=== PATIENT | female | born 1995 | race Caucasian/White ===

== ENCOUNTER → 2016-05-26 | Outpatient (CLI) | payer SELFPAY ==
--- NOTE | 2016-05-26 17:18 | REP ---
Obstetric sonography: History: Supervision of at 20 weeks for anatomy. Findings: Scanning through the gravid uterus demonstrates a viable single intrauterine gestation in a breech lie. motion is observed and heart rate is recorded at 150 beats per minute. A posterior grade 0 placenta is seen without evidence of previa or abruption. Amniotic fluid is subjectively normal. Closed cervical length is 3.2 cm measured transabdominally. No extrauterine abnormalities observed. No anomaly is seen. spine is less than optimally seen due to position. The following additional anatomic structures are identified and felt to be sonographically unremarkable: cranium, choroid plexus, cavum, cerebellum and posterior fossa, face and profile, lungs, four-chamber heart with left and right ventricular outflow tract views, diaphragm, left-sided stomach, abdominal wall cord insertion, three-vessel umbilical cord, kidneys and bladder, upper and lower extremities. Biometry chart: BPD 4.5 cm = 19 weeks 5 days HC 18.1 cm = 20 weeks 3 days AC 3.0 cm = 20 weeks 3 days FL 3.0 cm = 19 weeks 2 days HL 3.0 cm = 20 weeks 0 days HC/AC ratio normal 1.18. Cephalic index normal 0.67. Estimated weight 323 grams 0 pounds 11 ounces, 45th percentile for 20 weeks 0 days. Impression: Viable single intrauterine gestation at 20 weeks 0 days by today's composite sonographic criteria. JADON by today's sonography October 13, 2016. spine is less than optimally seen due to position. anatomic survey is otherwise complete. Signed by Jd Chaves MD 05/27/2016 09:54 A
== END | disposition home or self-care (01) ==
LOC: M RAD 10:47
DX: Z36 Encounter for antenatal screening of mother (principal); Z3A.20 20 weeks gestation of pregnancy; O32.1XX0 Maternal care for breech presentation, not applicable or unspecified

== ENCOUNTER 2017-12-24 19:59 | Emergency (ER) | payer MEDICAID, SELFPAY ==
[2017-12-24] MEDS: CLINDAMYCIN 150 MG CAP PO (20:44)
[2017-12-24] MEDS: NORCO 5/325MG TABLET (BULK FOR ED) PO (20:44)
== END 2017-12-24 21:04 | disposition home or self-care (01) ==
LOC: M ED 19:59
DX: K04.7 Periapical abscess without sinus (principal); K08.89 Other specified disorders of teeth and supporting structures; Z72.0 Tobacco use; Z88.0 Allergy status to penicillin; Z88.1 Allergy status to other antibiotic agents
CPT/HCPCS: 99282

== ENCOUNTER 2018-02-10 20:14 | Emergency (ER) | payer MEDICAID ==
[2018-02-10] MEDS: TETRACAINE 0.5% OPHTH SOLN 4ML OS (21:40)
[2018-02-10] MEDS: FLUORESCEIN OPHTH 1 MG STRIP OS (21:40)
[2018-02-10] MEDS ORDERED: ERYTHROMYCIN OPHTH OINT OD (21:45)
[2018-02-10] MEDS: IBUPROFEN 800 MG TAB PO (21:57)
[2018-02-10] MEDS: ADACEL/BOOSTRIX VACCINE (DIPHTH/PERTUSS/ACELL/TETANUS)0.5ML SYR (90715) IM (21:57)
[2018-02-10] MEDS: CIPROFLOXACIN 0.3% OPHTH SOLN 2.5ML OD (22:03)
== END 2018-02-10 22:09 | disposition home or self-care (01) ==
LOC: M ED 20:14
DX: S05.01XA Injury of conjunctiva and corneal abrasion without foreign body, right eye, initial encounter (principal); W20.8XXA Other cause of strike by thrown, projected or falling object, initial encounter; Y92.89 Other specified places as the place of occurrence of the external cause; F41.9 Anxiety disorder, unspecified; F32.9 Major depressive disorder, single episode, unspecified; F17.210 Nicotine dependence, cigarettes, uncomplicated; Z88.0 Allergy status to penicillin; Z88.1 Allergy status to other antibiotic agents
CPT/HCPCS: 90715

== ENCOUNTER 2018-08-12 23:41 | Emergency (ER) | payer OTHER ==
[~2018-08-12] VITALS: Ht 165.1 cm; Wt 59.5 kg
[~2018-08-12 23:41] MED LIST: CIPR0.3S OD; CLEO300C2 PO; ERYT1OIN26 OD; HYDR-3715 PO; IBUP1TAB7 PO
[2018-08-13] MEDS ORDERED: ALPRAZolam 0.25 MG TAB PO ONE (02:30)
[2018-08-13 02:31] VITALS: BP 120/62
== END 2018-08-13 02:44 | disposition home or self-care (01) ==
LOC: M ED 23:41
DX: F32.9 Major depressive disorder, single episode, unspecified (principal); F43.10 Post-traumatic stress disorder, unspecified; Z86.59 Personal history of other mental and behavioral disorders; Z62.819 Personal history of unspecified abuse in childhood; Z91.5 Personal history of self-harm

== ENCOUNTER 2018-08-15 01:14 | Emergency (ER) | payer OTHER ==
[~2018-08-15] VITALS: Ht 165.1 cm; Wt 60.9 kg
[2018-08-15 03:21] LABS: HEMATOCRIT 39.9 % (36.0-47.0); HEMOGLOBIN 13.1 g/dl (12.0-15.5); MEAN CORPUSCULAR HEMOGLOBIN 30.6 pg (27.0-33.0); MEAN CORPUSCULAR HGB CONC 32.8 g/dl (32.0-36.5); MEAN CORPUSCULAR VOLUME 93.2 fl (80.0-96.0); PLATELET COUNT, AUTOMATED 257 10^3/uL (150-450); RED BLOOD COUNT 4.28 10^6/uL (4.00-5.40); WHITE BLOOD COUNT 9.2 10^3/uL (4.0-10.0)
[2018-08-15 03:44] LABS: HCG, SERUM QUALITATIVE NEGATIVE (NEGATIVE)
[2018-08-15 03:55] LABS: ACETAMINOPHEN LEVEL < 2.0 UG/ML (10.0-30.0); ALBUMIN 4.1 GM/DL (3.2-5.2); ALT/SGPT 21 U/L (12-78); BILIRUBIN,DIRECT < 0.1 MG/DL (0.0-0.2); BILIRUBIN,TOTAL 0.2 MG/DL (0.2-1.0); BLOOD UREA NITROGEN 14 MG/DL (7-18); CALCIUM LEVEL 8.5 MG/DL (8.5-10.1); CARBON DIOXIDE LEVEL 25 MEQ/L (21-32); CHLORIDE LEVEL 112 MEQ/L (98-107); CREATININE FOR GFR 1.19 MG/DL (0.55-1.30); ETHYL ALCOHOL (ETHANOL) < 0.003 % (0.000-0.010); GLOMERULAR FILTRATION RATE 59.3 (>60); GLUCOSE, FASTING 94 MG/DL (70-100); POTASSIUM SERUM 4.2 MEQ/L (3.5-5.1); SALICYLATE LEVEL 2.4 MG/DL (5.0-30.0); SODIUM LEVEL 144 MEQ/L (136-145); THYROID STIMULATING HORMONE 0.779 uIU/ML (0.358-3.740); TOTAL PROTEIN 7.1 GM/DL (6.4-8.2)
[2018-08-15 04:38] LABS: AMPHETAMINES LEVEL URINE NEGATIVE (NEGATIVE); BARBITURATES URINE NEGATIVE (NEGATIVE); BENZODIAZEPINES URINE NEGATIVE (NEGATIVE); CANNABINOIDS URINE POSITIVE (NEGATIVE); COCAINE METABOLITE URINE NEGATIVE (NEGATIVE); METHADONE URINE NEGATIVE (NEGATIVE); OPIATES URINE NEGATIVE (NEGATIVE); PHENCYCLIDINE URINE NEGATIVE (NEGATIVE)
[2018-08-15 06:25] VITALS: BP 125/62
--- NOTE | 2018-08-15 23:12 | ECGEPIP ---
Stationary ECG Study [facility] - ED Test Date: 2018-08-15 Pat Name: LOREE SHIRLEY Department: Room: - Gender: [place]: : 1995 Requested By: Clint Zuniga Order Number: [id number] Reading MD: Clint Bunch Measurements Intervals Mere[place] Rate: 76 P: -43 MD: 156 QRS: 84 QRSD: 93 T: 44 QT: 370 QTc: 418 Interpretive Statements SINUS RHYTHM SIMILAR TO 06/30/15 Electronically Signed On 08-15-2018 23:12:39 EDT by Clint Bunch
== END 2018-08-15 06:30 | disposition home or self-care (01) ==
LOC: M ED 01:14
DX: F41.9 Anxiety disorder, unspecified (principal); F33.9 Major depressive disorder, recurrent, unspecified; F12.10 Cannabis abuse, uncomplicated; F43.10 Post-traumatic stress disorder, unspecified; Z91.5 Personal history of self-harm; Z62.810 Personal history of physical and sexual abuse in childhood; F19.10 Other psychoactive substance abuse, uncomplicated; F17.210 Nicotine dependence, cigarettes, uncomplicated
CPT/HCPCS: 36415; 80048; 80076; 80307; 84443; 84703; 85027; 93005; 99284; G0480

== ENCOUNTER 2018-10-22 17:26 | Emergency (ER) | payer OTHER ==
[~2018-10-22] VITALS: Ht 165.1 cm; Wt 56.8 kg
[2018-10-22] MEDS ORDERED: PERCOCET 5MG/325MG TAB PO ONE (18:00)
--- NOTE | 2018-10-22 18:13 | REP ---
Clinical: Trauma. Fall. Technique: AP, lateral, bilateral oblique views of the left wrist. Findings: There is a nondisplaced minimally angulated fracture of the distal radial metaphysis which appears to extend to the articular surface. Overlying soft tissue swelling noted. Carpal bones and ulna appear intact. Impression: Fracture of the distal radial metaphysis appears to extend to the articular surface. Electronically Signed by Yaya Moran MD 10/22/2018 06:05 P
[2018-10-22] MEDS ORDERED: NORC1TAB7 PO (18:58)
[2018-10-22] MEDS ORDERED: IBUP-1022 PO (18:58)
[2018-10-22] MEDS ORDERED: NORCO 5/325MG TABLET (BULK FOR ED) PO ONE (19:00)
[2018-10-22 19:12] VITALS: BP 127/82
== END 2018-10-22 19:23 | disposition home or self-care (01) ==
LOC: M ED 17:26
DX: S52.502A Unspecified fracture of the lower end of left radius, initial encounter for closed fracture (principal); V16.4XXA Pedal cycle driver injured in collision with other nonmotor vehicle in traffic accident, initial encounter; Y92.410 Unspecified street and highway as the place of occurrence of the external cause; Z88.0 Allergy status to penicillin; Z88.1 Allergy status to other antibiotic agents; Z88.8 Allergy status to other drugs, medicaments and biological substances; F17.210 Nicotine dependence, cigarettes, uncomplicated

== ENCOUNTER → 2019-04-09 | Outpatient (CLI) | payer OTHER ==
[~2019-04-09] MED LIST changes: +IBUP-1022 PO; +NORC1TAB7 PO
== END ==
LOC: M LAB 15:14
PROVIDERS: ATTEND Obstetrics & Gynecology
DX: Z34.90 Encounter for supervision of normal pregnancy, unspecified, unspecified trimester (principal)

== ENCOUNTER → 2019-10-08 | Outpatient (CLI) | payer OTHER ==
[~2019-10-08] MED LIST changes: -ERYT1OIN26 OD; +ERYT5OIN25 OD
== END ==
LOC: M LAB 13:00
DX: N91.0 Primary amenorrhea (principal)

== ENCOUNTER → 2019-10-16 | Outpatient (CLI) | payer OTHER ==
[~2019-10-16] MED LIST changes: +IBUP-1114 PO; +MAPA500C PO; +REGL10TA6 PO
--- NOTE | 2019-10-17 03:22 | REP ---
REASON: Supervision of normal . Transvesical imaging was obtained. Within the uterus, there is an anechoic structure with increased echoes surrounding it, consistent with a decidual reaction. Within the gestational sac, there is echogenic material, consistent with a pole, the mean crown-rump length measurement of which is consistent with a 6-week 5-day gestational age. Based on that, the estimated date of delivery is 06/05/2020. Doppler interrogation of the heart shows a heart rate of 140 beats per minute. The maternal cervix measures 3.1 cm in length and is closed. Evaluation of the maternal adnexal spaces showed no gross abnormalities. IMPRESSION: Early OB ultrasound, as described above.
== END ==
LOC: M WHC 14:49
DX: Z34.90 Encounter for supervision of normal pregnancy, unspecified, unspecified trimester (principal); Z36.87 Encounter for antenatal screening for uncertain dates; Z3A.01 Less than 8 weeks gestation of pregnancy

== ENCOUNTER 2019-10-21 13:25 | Emergency (ER) | payer OTHER ==
[~2019-10-21] VITALS: Ht 165.1 cm; Wt 60.0 kg
[~2019-10-21 13:25] MED LIST changes: -IBUP-1114 PO; -MAPA500C PO; -REGL10TA6 PO
[2019-10-21] MEDS ORDERED: NS 1,000 ML IV ONE (13:45)
[2019-10-21] MEDS ORDERED: METOCLOPRAMIDE 10 MG TAB PO ONE (13:45)
[2019-10-21] MEDS ORDERED: METOCLOPRAMIDE INJ 10MG/2ML VIAL (J2765 PER 1) IV ONE (14:15)
[2019-10-21 14:17] LABS: BASO % 0.3 % (0.0-1.0); EOS % 0.3 % (0.0-3.0); HEMATOCRIT 35.8 % (36.0-47.0); HEMOGLOBIN 12.3 g/dl (12.0-15.5); LYMPH # 1.4 10^3/uL (1.5-5.0); MEAN CORPUSCULAR HEMOGLOBIN 30.6 pg (27.0-33.0); MEAN CORPUSCULAR HGB CONC 34.4 g/dl (32.0-36.5); MEAN CORPUSCULAR VOLUME 89.1 fl (80.0-96.0); MONO # 0.5 10^3/uL (0.0-0.8); MONO % 6.3 % (0.0-5.0); NEUTROPHILS # 5.3 10^3/uL (1.5-8.5); PLATELET COUNT, AUTOMATED 282 10^3/uL (150-450); RED BLOOD COUNT 4.02 10^6/uL (4.00-5.40); WHITE BLOOD COUNT 7.2 10^3/uL (4.0-10.0)
[2019-10-21] MEDS ORDERED: REGL10TA6 PO (15:38)
[2019-10-21 15:56] VITALS: BP 110/73
== END 2019-10-21 16:03 | disposition home or self-care (01) ==
LOC: M ED 13:25
DX: O21.0 Mild hyperemesis gravidarum (principal); Z3A.01 Less than 8 weeks gestation of pregnancy; O99.341 Other mental disorders complicating pregnancy, first trimester; F33.9 Major depressive disorder, recurrent, unspecified; F41.9 Anxiety disorder, unspecified; F43.10 Post-traumatic stress disorder, unspecified; F94.1 Reactive attachment disorder of childhood; Z88.1 Allergy status to other antibiotic agents; Z88.8 Allergy status to other drugs, medicaments and biological substances; F17.210 Nicotine dependence, cigarettes, uncomplicated; O99.331 Smoking (tobacco) complicating pregnancy, first trimester
CPT/HCPCS: 80047; 84702; 85025; 96361; 96374; 99284; J2765

== ENCOUNTER → 2019-10-28 | Outpatient (CLI) | payer OTHER ==
[~2019-10-28] MED LIST changes: +IBUP-1114 PO; +MAPA500C PO; +REGL10TA6 PO
== END ==
LOC: M LABSMTC 10:58
PROVIDERS: ATTEND Anesthesiology
DX: Z03.818 Encounter for observation for suspected exposure to other biological agents ruled out (principal)
CPT/HCPCS: C9803; U0003

== ENCOUNTER 2019-10-31 06:13 | Day surgery (SDC) | payer OTHER ==
[~2019-10-31] VITALS: Ht 165.1 cm; Wt 59.9 kg
[~2019-10-31 06:13] MED LIST changes: -IBUP-1114 PO; -MAPA500C PO
[2019-10-31] MEDS ORDERED: MAPA500C PO (06:55)
[2019-10-31] MEDS ORDERED: IBUP-1114 PO (06:57)
[2019-10-31] MEDS ORDERED: LR 1,000 ML IV ONE (07:00)
[2019-10-31] MEDS ORDERED: ceFAZolin SOD 2 GM in IV 1 EA IV ONE (07:00)
[2019-10-31] MEDS ORDERED: CHLORHEXIDINE GLUCONATE 0.12 % 15ML UDC (PERIDEX ORAL RINSE) As Ordered ONE (07:11)
[2019-10-31] MEDS ORDERED: LIDOCAINE 2% W/ EPINEPHRINE 1.7 ML DENTAL INJ As Ordered ONE (07:12)
[2019-10-31] MEDS ORDERED: propofoL 200 MG/20 ML VIAL As Ordered ONE (07:13)
[2019-10-31] MEDS ORDERED: fentaNYL 250 MCG/5 ML INJECTION (J3010) As Ordered ONE (07:13)
[2019-10-31] MEDS ORDERED: MIDAZOLAM INJ 2MG/2ML VIAL (J2250 PER 1MG) As Ordered ONE (07:13)
[2019-10-31] MEDS ORDERED: ROCURONIUM BROMIDE 50 MG/5 ML VIAL As Ordered ONE (07:13)
[2019-10-31] MEDS ORDERED: LIDOCAINE 2% 100MG/5ML SDV (FOR ANES.) As Ordered ONE (07:13)
[2019-10-31] MEDS ORDERED: OXYMETAZOLINE 0.05% NASAL SPRAY (AFRIN) As Ordered ONE (07:20)
[2019-10-31] MEDS ORDERED: ACETAMINOPHEN 1000MG 100ML IV BTL (OFIRMEV) (J0131 PER 10MG) As Ordered ONE (08:50)
[2019-10-31] MEDS ORDERED: dexameTHASONE 4 MG/ML 1ML VIAL (J1100 PER 1MG) As Ordered ONE (08:50)
[2019-10-31] MEDS ORDERED: diphenhydrAMINE 50MG/ML VIAL (J1200) As Ordered ONE (08:53)
[2019-10-31] MEDS ORDERED: SUGAMMADEX SODIUM 500 MG/5 ML VIAL (BRIDION) As Ordered ONE (08:54)
[2019-10-31] MEDS: LR 1,000 ML IV SCH ×2 (09:12→09:26)
[2019-10-31] MEDS: fentaNYL 100 MCG/2 ML INJECTION (J3010) IV PRN ×4 (09:28→09:43)
[2019-10-31] MEDS ORDERED: METOCLOPRAMIDE INJ 10MG/2ML VIAL (J2765 PER 1) IV PRN (09:30)
[2019-10-31] MEDS ORDERED: ONDANSETRON 4MG/2ML VIAL IV PRN (09:30)
[2019-10-31] MEDS ORDERED: PERCOCET 5MG/325MG TAB PO PRN (09:30)
[2019-10-31 10:16] VITALS: BP 110/57
--- NOTE | 2019-11-06 00:08 | RO ---
DATE OF PROCEDURE: 10/31/2019 PREPROCEDURE DIAGNOSIS: Malposed, impacted and decayed teeth numbers 1, 2, 5, 15, 16, 18, 19, 20, 30 and 32. POSTPROCEDURE DIAGNOSIS: Malposed, impacted and decayed teeth numbers 1, 2, 5, 15, 16, 18, 19, 20, 30 and 32. The findings during this surgery were consistent with the preoperative diagnosis. PROCEDURE: Extraction of 1, 2, 5, 15, 16, 18, 19, 20, 30 and 32 with necessary alveoplasty. SURGEON: Aba Vu DDS LEAF SUCKER OPERATOR: ANESTHESIA: Anesthesia was provided by Dr. Beth and Mr. Augusto CRNA. The patient received approximately 800 mL of lactated Ringer's during the case. Blood loss was less than 50 mL. There were no complications during the case. She was taken to the post-anesthesia care unit (PACU) and later discharged to home with instructions for postoperative care and followup. INDICATIONS FOR THE PROCEDURE: Susannah is a 23-year-old female who was initially seen in my office at [facility] for extraction of decayed teeth. We attempted a sedation for Susannah who did not do very well under the sedation. She was allowed to wake up and was explained that she would need to be treated in the operating room. All the risks, complications and alternatives of tooth removal with alveoloplasty in the operating room were discussed with the patient. DESCRIPTION OF PROCEDURE: The patient was seen in the preoperative holding area and all necessary paperwork was completed. She was then taken to operating room #3 where she was placed under general anesthesia via nasal endotracheal intubation without any complications. The endotracheal tube was secured by the oral maxillofacial surgeon in a head wrap. The patient was then prepped and draped in a sterile fashion. A time-out was conducted. The throat was suctioned clean and dry, and a throat pack was placed. Local anesthetic in the form of 2% lidocaine with 1:100,000 epinephrine was injected into the four quadrants of the mouth where the teeth were involved. We then proceeded with surgical removal of the teeth by creating a mucoperiosteal flap. Buccal bone was removed. In cases of multirooted teeth, the roots were sectioned. All of the roots were removed, and the sockets were thoroughly curetted and irrigated with copious amounts of normal saline. The areas were then sutured with a #3-0 chromic gut suture. We then proceeded to clear the rest of the throat, removed the throat pack. The patient was allowed to emerge from general anesthesia and did so without any complications. She was taken to the PACU in stable condition and later discharged to home with instructions for care and for postop followup.
== END 2019-10-31 11:15 | disposition home or self-care (01) ==
LOC: M SDC 06:13
PROVIDERS: ATTEND Dentist
DX: K02.9 Dental caries, unspecified (principal); M26.30 Unspecified anomaly of tooth position of fully erupted tooth or teeth; K01.1 Impacted teeth; K21.9 Gastro-esophageal reflux disease without esophagitis; Z79.899 Other long term (current) drug therapy; Z88.1 Allergy status to other antibiotic agents; Z88.0 Allergy status to penicillin; Z88.8 Allergy status to other drugs, medicaments and biological substances; F12.11 Cannabis abuse, in remission; Z87.891 Personal history of nicotine dependence; Z33.1 Pregnant state, incidental
CPT/HCPCS: 41899; 88300; J0131; J0690; J1100; J1200; J2765; J3010

== ENCOUNTER 2020-01-21 18:09 | Emergency (ER) | payer OTHER ==
[~2020-01-21] VITALS: Ht 165.1 cm; Wt 63.5 kg
[~2020-01-21 18:09] MED LIST changes: -CIPR0.3S OD; +CIPR0.3S6 OD; +IBUP-1114 PO; +MAPA500C PO
[2020-01-21] MEDS ORDERED: METOCLOPRAMIDE INJ 10MG/2ML VIAL (J2765 PER 1) IV ONE (20:00)
[2020-01-21] MEDS ORDERED: NS 1,000 ML IV ONE (20:00)
[2020-01-21 20:18] LABS: BASO % 0.2 % (0.0-1.0); EOS # 0.1 10^3/uL (0.0-0.5); HEMOGLOBIN 10.4 g/dl (12.0-15.5); LYMPH # 1.4 10^3/uL (1.5-5.0); LYMPH % 11.7 % (24.0-44.0); MEAN CORPUSCULAR HGB CONC 34.7 g/dl (32.0-36.5); MEAN CORPUSCULAR VOLUME 92.3 fl (80.0-96.0); MONO # 0.8 10^3/uL (0.0-0.8); MONO % 6.6 % (0.0-5.0); NEUTROPHILS # 9.8 10^3/uL (1.5-8.5); NEUTROPHILS % 80.1 % (36.0-66.0); PLATELET COUNT, AUTOMATED 249 10^3/uL (150-450); RED BLOOD COUNT 3.25 10^6/uL (4.00-5.40); WHITE BLOOD COUNT 12.2 10^3/uL (4.0-10.0)
[2020-01-21 20:41] LABS: ALBUMIN 3.1 GM/DL (3.2-5.2); ALT/SGPT 13 U/L (12-78); BILIRUBIN,DIRECT 0.1 MG/DL (0.0-0.2); BILIRUBIN,TOTAL 0.2 MG/DL (0.2-1.0); BLOOD UREA NITROGEN 8 MG/DL (7-18); CALCIUM LEVEL 9.1 MG/DL (8.5-10.1); CARBON DIOXIDE LEVEL 24 MEQ/L (21-32); CHLORIDE LEVEL 106 MEQ/L (98-107); CREATININE FOR GFR 0.47 MG/DL (0.55-1.30); GLOMERULAR FILTRATION RATE > 60.0 (>60); GLUCOSE, FASTING 80 MG/DL (70-100); LIPASE 48 U/L (73-393); POTASSIUM SERUM 3.4 MEQ/L (3.5-5.1); SODIUM LEVEL 137 MEQ/L (136-145); TOTAL PROTEIN 6.4 GM/DL (6.4-8.2)
[2020-01-21 21:18] VITALS: BP 111/57
== END 2020-01-21 21:28 | disposition home or self-care (01) ==
LOC: M ED 18:09
DX: O99.612 Diseases of the digestive system complicating pregnancy, second trimester (principal); K42.9 Umbilical hernia without obstruction or gangrene; O99.342 Other mental disorders complicating pregnancy, second trimester; O21.9 Vomiting of pregnancy, unspecified; Z3A.22 22 weeks gestation of pregnancy
CPT/HCPCS: 80048; 80076; 83605; 83690; 85025; 86850; 86900; 86901; 93041; 96361; 96374; 99284; J2765

== ENCOUNTER → 2020-10-14 | Outpatient (REF) | payer OTHER ==
[2020-10-14 17:36] LABS: BASO % 0.3 % (0.0-1.0); EOS # 0.1 10^3/uL (0.0-0.5); EOS % 1.1 % (0.0-3.0); HEMATOCRIT 40.2 % (36.0-47.0); HEMOGLOBIN 13.3 g/dl (12.0-15.5); LYMPH # 2.2 10^3/uL (1.5-5.0); LYMPH % 23.7 % (24.0-44.0); MEAN CORPUSCULAR HEMOGLOBIN 29.5 pg (27.0-33.0); MEAN CORPUSCULAR HGB CONC 33.1 g/dl (32.0-36.5); MEAN CORPUSCULAR VOLUME 89.1 fl (80.0-96.0); MONO # 0.6 10^3/uL (0.0-0.8); MONO % 6.9 % (2.0-8.0); NEUTROPHILS # 6.2 10^3/uL (1.5-8.5); NEUTROPHILS % 67.8 % (36.0-66.0); PLATELET COUNT, AUTOMATED 318 10^3/uL (150-450); RED BLOOD COUNT 4.51 10^6/uL (4.00-5.40); WHITE BLOOD COUNT 9.1 10^3/uL (4.0-10.0)
[2020-10-14 18:12] LABS: ALBUMIN 3.9 GM/DL (3.2-5.2); ALT/SGPT 53 U/L (12-78); BILIRUBIN,TOTAL 0.2 MG/DL (0.2-1.0); BLOOD UREA NITROGEN 10 MG/DL (7-18); CALCIUM LEVEL 9.1 MG/DL (8.5-10.1); CARBON DIOXIDE LEVEL 24 MEQ/L (21-32); CHLORIDE LEVEL 108 MEQ/L (98-107); CHOLESTEROL LEVEL 155 MG/DL (<200); CHOLESTEROL RISK RATIO 3.163 (<5); CREATININE FOR GFR 0.54 MG/DL (0.55-1.30); FREE T4 0.93 NG/DL (0.76-1.46); GLOMERULAR FILTRATION RATE > 60.0 (>60); GLUCOSE, FASTING 92 MG/DL (70-100); HDL CHOLESTEROL 49 MG/DL (>40); LDL CHOLESTEROL 89 MG/DL (<100); NON-HDL-C 106 MG/DL; POTASSIUM SERUM 4.3 MEQ/L (3.5-5.1); SODIUM LEVEL 139 MEQ/L (136-145); TOTAL PROTEIN 7.3 GM/DL (6.4-8.2); TRIGLYCERIDES LEVEL 83 MG/DL (<150)
[2020-10-14 18:55] LABS: HEPATITIS C VIRUS ABY INDEX < 0.0 INDEX (<0.8); HIV 1&2 SCREEN CENTAUR NEGATIVE (NEGATIVE)
== END ==
LOC: M LAB REF 16:48
PROVIDERS: ATTEND Nurse Practitioner Family
DX: Z00.00 Encounter for general adult medical examination without abnormal findings (principal); D64.9 Anemia, unspecified; Z13.228 Encounter for screening for other metabolic disorders

== ENCOUNTER 2023-06-02 13:15 | Emergency (ER) | payer OTHER ==
[~2023-06-02] VITALS: Ht 165.1 cm; Wt 70.7 kg
[2023-06-02 13:15] VITALS: BP 155/88; TEMP 97.7; O2SAT 96
[~2023-06-02 13:15] MED LIST changes: +ACET-683 PO; +CIPR0.3S37 OD; -CIPR0.3S6 OD; +IBUP80TA PO; +PRENTAB9 PO; +PYRI50TA40 PO; +URSO300C3 PO
[2023-06-02] MEDS ORDERED: TUMS500C PO (14:17)
== END 2023-06-02 13:44 | disposition admitted as inpatient to this hospital (09) ==
LOC: M ED 13:15
DX: Z53.21 Procedure and treatment not carried out due to patient leaving prior to being seen by health care provider (principal)

== ENCOUNTER 2023-06-02 13:47 | Inpatient (IN) | payer OTHER ==
[2023-06-02] VITALS (8 sets, daily range): BP systolic 119–156; BP diastolic 65–87
[~2023-06-02] VITALS: Ht 165.1 cm; Wt 70.8 kg
[2023-06-02] MEDS ORDERED: TUMS500C PO (14:17)
[2023-06-02] MEDS ORDERED: HOME MED LIST COMPLETE! XX SCH (14:20)
[2023-06-02 14:51] LABS: HEMATOCRIT 31.2 % (36.0-47.0); MEAN CORPUSCULAR HEMOGLOBIN 32.3 pg (27.0-33.0); MEAN CORPUSCULAR HGB CONC 35.3 g/dl (32.0-36.5); MEAN CORPUSCULAR VOLUME 91.5 fl (80.0-96.0); PLATELET COUNT, AUTOMATED 296 10^3/uL (150-450); RED BLOOD COUNT 3.41 10^6/uL (4.00-5.40); WHITE BLOOD COUNT 12.5 10^3/uL (4.0-10.0)
[2023-06-02 15:16] LABS: ALBUMIN 2.4 G/DL (3.2-5.2); ALKALINE PHOSPHATASE 261 U/L (46-116); ALT/SGPT 141 U/L (7.0-40); AST/SGOT 179 U/L (<34); BILIRUBIN,TOTAL 1.2 MG/DL (0.3-1.2); BLOOD UREA NITROGEN 6 MG/DL (9-23); CALCIUM LEVEL 7.8 MG/DL (8.5-10.1); CARBON DIOXIDE LEVEL 23 MMOL/L (20-31); CHLORIDE LEVEL 102 MMOL/L (98-107); CREATININE FOR GFR 0.66 MG/DL (0.55-1.30); GLOMERULAR FILTRATION RATE > 60.0 (>60); GLUCOSE, FASTING 90 MG/DL (60-100); POTASSIUM SERUM 3.3 MMOL/L (3.5-5.1); SODIUM LEVEL 134 MMOL/L (136-145); TOTAL PROTEIN 6.2 G/DL (5.7-8.2)
[2023-06-02 15:35] LABS: APPEARANCE, URINE HAZY (CLEAR); BACTERIA, URINE AUTO 1+ (NEGATIVE); BILIRUBIN, URINE AUTO NEGATIVE (NEGATIVE); BLOOD, URINE BLOOD 1+ (NEGATIVE); COLOR, URINE AMBER (YELLOW); GLUCOSE, URINE (UA) AUTO NEGATIVE (NEGATIVE); KETONE, URINE AUTO NEGATIVE (NEGATIVE); LEUKOCYTE ESTERASE, URINE AUTO 3+ (NEGATIVE); NITRITE, URINE AUTO NEGATIVE (NEGATIVE); PROTEIN, URINE AUTO 1+ mg/dL (NEGATIVE); RBC, URINE AUTO 5 /HPF (0-3); SQUAMOUS EPITHELIAL CELL UR AU 9 /HPF (0-6); UROBILINOGEN, URINE AUTO 0.2 mg/dL (0.0-2.0); WBC, URINE AUTO 34 /HPF (0-3)
[2023-06-02 16:14] LABS: AMPHETAMINES LEVEL URINE NEGATIVE (NEGATIVE); BENZODIAZEPINES URINE NEGATIVE (NEGATIVE)
[2023-06-02 16:15] LABS: BARBITURATES URINE NEGATIVE (NEGATIVE); COCAINE METABOLITE URINE NEGATIVE (NEGATIVE); METHADONE URINE NEGATIVE (NEGATIVE); OPIATES URINE NEGATIVE (NEGATIVE); PHENCYCLIDINE URINE NEGATIVE (NEGATIVE)
[2023-06-02 16:29] LABS: CANNABINOIDS URINE POSITIVE (NEGATIVE)
[2023-06-02 16:30] LABS: HEPATITIS C VIRUS ABY INDEX 0.02 INDEX (<0.8)
[2023-06-02 16:31] LABS: HEPATITIS B CORE ANTIBODY IGM NEGATIVE (NEGATIVE)
[2023-06-02] MEDS ORDERED: OXYTOCIN DRIP 30 UNITS in IV 1 EA IV PRN (19:00)
[2023-06-02] MEDS ORDERED: TRANEXAMIC ACID INJection 1,000 MG in NS 100 ML IV PRN (19:00)
[2023-06-02] MEDS ORDERED: CARBOPROST TROMETHAMINE 250 MCG/ML AMP IM PRN (19:00)
[2023-06-02] MEDS ORDERED: LIDOCAINE 1% MDV 20ML VIAL INFIL PRN (19:00)
[2023-06-02] MEDS: LR 1,000 ML IV SCH (20:13)
[2023-06-02] MEDS: OXYTOCIN DRIP 30 UNITS in IV 1 EA IV SCH (20:13)
[2023-06-02] MEDS: ceFAZolin SOD 2 GM in IV 1 EA IV STA (20:14)
[2023-06-02] MEDS ORDERED: ONDANSETRON 4MG 2ML VIAL As Ordered ONE (21:03)
[2023-06-03] VITALS (25 sets, daily range): BP systolic 101–129; BP diastolic 53–80; O2SAT 96
[2023-06-03] MEDS: LACTATED RINGER'S 1000 ML IV STA (04:03)
[2023-06-03] MEDS: ceFAZolin SOD 1 GM in D5W MINI-BAG PLUS 50 ML IV SCH (04:04)
[2023-06-03] MEDS: ONDANSETRON 4MG 2ML VIAL IV ONE (04:04)
[2023-06-03] MEDS ORDERED: ONDANSETRON 4MG 2ML VIAL IV PRN (04:10)
[2023-06-03] MEDS ORDERED: LR 500 ML IV PRN (04:10)
[2023-06-03] MEDS ORDERED: EPIDURAL/PCA KEYS XX PRN (04:10)
[2023-06-03] MEDS ORDERED: diphenhydrAMINE 50MG/ML VIAL IV PRN (04:10)
[2023-06-03] MEDS ORDERED: ePHEDrine SULFATE 25 MG/5 ML(5MG/ML) SYRINGE IVP PRN (04:10)
[2023-06-03] MEDS ORDERED: NALOXONE INJ 0.4MG/1ML VIAL IV PRN (04:10)
[2023-06-03] MEDS: FENTANYL/ROPIVACAINE/NACL BAG 100 ML EPIDURAL SCH (05:36)
[2023-06-03] MEDS ORDERED: OXYTOCIN 30UNITS IN 0.9% NaCl 500ML IV BAG As Ordered ONE (07:10)
[2023-06-03] MEDS ORDERED: MORPHINE PRES-FREE INJ 10 MG/10 ML VIAL As Ordered ONE (07:11)
[2023-06-03] MEDS ORDERED: RHOGAM 300MCG (1500IU) INJ IM SCH (14:40)
[2023-06-03] MEDS ORDERED: METHYLERGONOVINE MALEATE 0.2 MG TAB PO PRN (14:40)
[2023-06-03] MEDS ORDERED: DOCUSATE SODIUM 100MG CAPSULE PO PRN (14:40)
[2023-06-03] MEDS: DIBUCAINE 1% OINTMENT 30GM TOP PRN (18:34)
[2023-06-03] MEDS: ACETAMINOPHEN TAB 650MG DOSE (2X325MG) PO PRN (18:35)
[2023-06-03] MEDS: IBUPROFEN 600MG TAB PO PRN (18:35)
[2023-06-04] MEDS: ACETAMINOPHEN 500 MG TAB PO PRN (05:52)
[2023-06-04 06:00] VITALS: BP 119/66; O2SAT 97
[2023-06-04] MEDS: PRENATAL VITAMINS CHEWABLE TABLET PO SCH (08:44)
[2023-06-04] MEDS: diphenhydrAMINE 25MG CAP PO PRN (08:44)
[2023-06-04 18:00] VITALS: BP 124/74; O2SAT 98
[2023-06-05 05:44] VITALS: BP 146/83; O2SAT 98
[2023-06-05] MEDS: IBUPROFEN 800 MG TAB PO PRN (07:34)
[2023-06-05] MEDS: ANUSOL HC CREAM 30GM TOP PRN (07:36)
[2023-06-05 08:35] VITALS: BP 146/83; TEMP 97.3; O2SAT 98
[2023-06-05] MEDS ORDERED: MEASLES,MUMPS,RUBELLA VACCINE INJ (MMR-II) SC.IMMUN ONE (09:00)
[2023-06-05] MEDS ORDERED: IBUP80TA PO (12:15)
[2023-06-05] MEDS ORDERED: ACET-683 PO (12:15)
== END 2023-06-05 13:45 | disposition home or self-care (01) | DRG 560 ==
LOC: M LDO 13:47 → M LDI 18:56 → M OBS 06-03 15:39
PROVIDERS: ADMIT Obstetrics & Gynecology; ATTEND Advanced Practice Midwife
PROC: 3E033VJ Introduction of Other Hormone into Peripheral Vein, Percutaneous Approach (ICD-10-PCS; 2023-06-02)
PROC: 10E0XZZ Delivery of Products of Conception, External Approach (ICD-10-PCS; principal; 2023-06-03)
PROC: 10907ZC Drainage of Amniotic Fluid, Therapeutic from Products of Conception, Via Natural or Artificial Opening (ICD-10-PCS; 2023-06-03)
DX: O26.643 Intrahepatic cholestasis of pregnancy, third trimester (principal); Z3A.36 36 weeks gestation of pregnancy; Z88.0 Allergy status to penicillin; Z88.1 Allergy status to other antibiotic agents; Z88.2 Allergy status to sulfonamides; Z88.8 Allergy status to other drugs, medicaments and biological substances; O69.81X0 Labor and delivery complicated by cord around neck, without compression, not applicable or unspecified; Z37.0 Single live birth